=== PATIENT | male | born 1990 | race Caucasian/White ===

== ENCOUNTER 2016-09-01 02:30 | Emergency (ER) | payer SELFPAY ==
[~2016-09-01] VITALS: Ht 182.8 cm; Wt 77.1 kg
[~2016-09-01 02:30] MED LIST: AUGMENTIN 875 M1 TAB PO; NKHM
== END 2016-09-01 04:08 | disposition home or self-care (01) ==
LOC: ED 02:30
DX: S01.81XA Laceration without foreign body of other part of head, initial encounter (principal); S01.412A Laceration without foreign body of left cheek and temporomandibular area, initial encounter; F17.200 Nicotine dependence, unspecified, uncomplicated; Z91.040 Latex allergy status; W25.XXXA Contact with sharp glass, initial encounter; Y93.89 Activity, other specified; Y92.89 Other specified places as the place of occurrence of the external cause; Y99.9 Unspecified external cause status

== ENCOUNTER 2017-09-09 19:21 | Emergency (ER) | payer BC ==
[~2017-09-09] VITALS: Ht 182.8 cm; Wt 77.1 kg
[2017-09-09] MEDS ORDERED: CEPHALEXIN500 M1 PO (20:10)
== END 2017-09-09 20:14 | disposition home or self-care (01) ==
LOC: ED 19:21
DX: S01.511A Laceration without foreign body of lip, initial encounter (principal); F17.200 Nicotine dependence, unspecified, uncomplicated; W45.8XXA Other foreign body or object entering through skin, initial encounter; Y93.89 Activity, other specified; Y92.89 Other specified places as the place of occurrence of the external cause; Y99.9 Unspecified external cause status

== ENCOUNTER 2021-10-24 07:16 | Emergency (ER) | payer SELFPAY ==
[~2021-10-24 07:16] MED LIST changes: +CEPHALEXIN500 M1 PO
== END 2021-10-24 08:12 | disposition home or self-care (01) ==
LOC: ED 07:16
DX: S40.861A Insect bite (nonvenomous) of right upper arm, initial encounter (principal); W57.XXXA Bitten or stung by nonvenomous insect and other nonvenomous arthropods, initial encounter; Y93.89 Activity, other specified; Y92.89 Other specified places as the place of occurrence of the external cause; Y99.8 Other external cause status

== ENCOUNTER 2024-08-01 12:41 | Emergency (ER) | payer BC ==
[~2024-08-01] VITALS: Ht 182.8 cm; Wt 83.9 kg
== END 2024-08-01 13:30 | disposition home or self-care (01) ==
LOC: ED 12:41
DX: Z00.00 Encounter for general adult medical examination without abnormal findings (principal); Z98.890 Other specified postprocedural states